=== PATIENT | female | born 2000 | race Caucasian/White ===

== ENCOUNTER 2020-05-12 18:49 | Emergency (ER) | payer BC ==
[2020-05-12 20:34] LABS: HEMOGLOBIN 13.4 gm/dl (12.3-15.3); RED BLOOD COUNT 4.92 M/UL (4.00-5.10); WHITE BLOOD COUNT 9.6 K/UL (4.5-11.0)
[2020-05-12 20:58] LABS: BUN/CREATININE RATIO 10 (0-10)
== END 2020-05-13 00:58 | disposition home or self-care (01) ==
LOC: ER1 18:49
PROVIDERS: Emergency Medicine
DX: R07.1 Chest pain on breathing (principal); R10.13 Epigastric pain
CPT/HCPCS: 36415; 71045; 80053; 81001; 83690; 84484; 84703; 85025; 85379; 99284